=== PATIENT | male | born 1995 | race Caucasian/White ===

== ENCOUNTER 2017-06-01 08:58 | Emergency (ER) ==
[~2017-06-01] VITALS: Ht 170.2 cm; Wt 70.1 kg
[2017-06-01 09:12] VITALS: BP 136/81; PULSE 68; TEMP 37; O2SAT 98; Ht 170.2 cm; Wt 70.1 kg
== END 2017-06-01 10:32 | disposition left against medical advice (07) ==
LOC: C.EDB 09:00
DX: R69 Illness, unspecified (principal)